=== PATIENT | male | born 1945 | race Two or more races ===

== ENCOUNTER 2023-09-22 09:58 | Emergency (ER) | payer OTHER ==
[~2023-09-22] VITALS: Ht 180.3 cm; Wt 90.7 kg
[~2023-09-22 09:58] MED LIST: LASIX20 MG PO; NORVASC10 MG PO
[2023-09-22] MEDS ORDERED: LIPITOR40 M1 PO (10:28)
[2023-09-22] MEDS ORDERED: LOSARTAN POTASSI1 GM MC (10:28)
[2023-09-22] MEDS ORDERED: ELIQUIS2.5 MG PO (10:29)
[2023-09-22] MEDS ORDERED: NORFLEX100MG PO (12:48)
== END 2023-09-22 13:15 | disposition home or self-care (01) ==
LOC: ER 09:58
DX: M54.2 Cervicalgia (principal); I10 Essential (primary) hypertension
CPT/HCPCS: 72040; 96372; 99284; J1885; J3301